=== PATIENT | female | born 1985 | race Two or more races ===

== ENCOUNTER 2022-06-28 13:40 | Emergency (ER) | payer SELFPAY ==
[~2022-06-28] VITALS: Ht 154.9 cm; Wt 45.8 kg
--- NOTE | 2022-06-28 13:52 | NUR ---
DR WILSON AT BEDSIDE
[2022-06-28] MEDS ORDERED: ACETAMINOPHEN ES 500 MG TABLET PO ONE (14:00)
[2022-06-28] MEDS ORDERED: CYCLOBENZAPRINE 10 MG TABLET PO ONE (14:00)
[2022-06-28] MEDS ORDERED: ONDANSETRON 4 MG TAB.RAPDIS PO ONE (14:00)
[2022-06-28] MEDS ORDERED: ACETAMINOPHEN ES 500 MG TABLET ONE (14:02)
[2022-06-28] MEDS ORDERED: ONDANSETRON 4 MG TAB.RAPDIS ONE (14:02)
[2022-06-28] MEDS ORDERED: CYCLOBENZAPRINE 10 MG TABLET ONE (14:02)
--- NOTE | 2022-06-28 14:17 | NUR ---
URINE SAMPLE COLLECTED AND SENT TO LAB
--- NOTE | 2022-06-28 14:35 | NUR ---
PATIENT TAKEN TO CT BY RAMESH VIA WHEELCHAIR
[2022-06-28] MEDS ORDERED: KETOROLAC TROMETHAMINE INJ 30 MG/ML VIAL IM ONE (16:00)
[2022-06-28] MEDS ORDERED: CYCL10TA9 PO (16:05)
[2022-06-28] MEDS ORDERED: KETOROLAC TROMETHAMINE INJ 30 MG/ML VIAL ONE (16:09)
[2022-06-28 16:25] VITALS: BP 112/72
--- NOTE | 2022-06-28 16:27 | NUR ---
Patient discharged to home in stable condition. WALKING BY HERSELF. Written and verbal after care instructions given. Patient verbalizes understanding of instruction.
== END 2022-06-28 16:28 | disposition home or self-care (01) ==
LOC: ER 13:49
DX: M25.552 Pain in left hip (principal); R10.9 Unspecified abdominal pain; R51.9 Headache, unspecified; J45.909 Unspecified asthma, uncomplicated; V03.90XA Pedestrian on foot injured in collision with car, pick-up truck or van, unspecified whether traffic or nontraffic accident, initial encounter; Y93.89 Activity, other specified; Y92.488 Other paved roadways as the place of occurrence of the external cause; Y99.8 Other external cause status
CPT/HCPCS: 99285; 72125; 71045; 96372; 73552; 73503; 70450; 84703; J1885; Q0162; 73502